=== PATIENT | female | born 1970 ===

== ENCOUNTER 2018-05-29 11:46 | Emergency (ER) | payer OTHER, SELFPAY ==
[2018-05-29 12:01] VITALS: BP 134/72; PULSE 66; RESP 18; TEMP 97.8; O2SAT 98; BMI 22.3
--- NOTE | 2018-05-29 12:17 | ED PDOC ---
Arrival/HPI - General Chief Complaint: ENT Problem Time Seen by Provider: 05/29/18 12:03 Historian: Patient - History of Present Illness Narrative History of Present Illness (Text): 05/29/18 12:14 47 y/o female, nkda, c/o left ear pain and decrease hearing for the past several days. Aching pain, admits decrease hearing, no headache or neck pain, no head or neck injury, no numbness or tingling, no other medical or psychological complaints. Past Medical History - Provider Review Nursing Documentation Reviewed: Yes - Infectious Disease Hx of Infectious Diseases: None - Psychiatric Hx Substance Use: No Family/Social History - Physician Review Nursing Documentation Reviewed: Yes Family/Social History: Unknown Family HX Smoking Status: Never Smoked Hx Alcohol Use: Yes Frequency of alcohol use: Socially Hx Substance Use: No Allergies/Home Meds Allergies/Adverse Reactions: Allergies No Known Allergies Allergy (Verified 05/29/18 12:01) Home Medications: Home Meds Medication Instructions Recorded Confirmed No Known Home Med 05/29/18 05/29/18 Review of Systems - Review of Systems Constitutional: absent: Fatigue, Fevers ENT: Other (lt. ear pain and decrease hearing). absent: Hearing Changes Respiratory: absent: SOB, Cough Cardiovascular: absent: Chest Pain Gastrointestinal: absent: Abdominal Pain, Diarrhea, Nausea, Vomiting Skin: absent: Rash, Pruritis Neurological: absent: Headache, Dizziness Psychiatric: absent: Anxiety, Depression, Suicidal Ideation Physical Exam Vital Signs Reviewed: Yes Vital Signs Temp Pulse Resp BP Pulse Ox 05/29/18 12:00 97.8 F 66 18 134/72 98 Temperature: Afebrile Blood Pressure: Normal Pulse: Regular Respiratory Rate: Normal Appearance: Positive for: Well-Appearing, Non-Toxic, Comfortable Pain Distress: Mild Mental Status: Positive for: Alert and Oriented X 3 - Systems Exam Head: Present: Atraumatic, Normocephalic Pupils: Present: PERRL Extroacular Muscles: Present: EOMI Conjunctiva: Present: Normal Ears: Present: Other (Ears: unable to visualized lt. TM as the ear is filled with ceruman, rt. TM bernard color and intact, bilateral auditory canals non- erythematous, no mastoid tenderness, hearing grossly decreased in left ear) Mouth: Present: Moist Mucous Membranes Neck: Present: Normal Range of Motion Respiratory/Chest: Present: Clear to Auscultation, Good Air Exchange. No: Respiratory Distress, Accessory Muscle Use Cardiovascular: Present: Regular Rate and Rhythm, Normal S1, S2. No: Murmurs Abdomen: No: Tenderness, Distention, Peritoneal Signs Back: Present: Normal Inspection Upper Extremity: Present: Normal Inspection. No: Cyanosis, Edema Lower Extremity: Present: Normal Inspection. No: Edema Neurological: Present: GCS=15, CN II-XII Intact, Speech Normal Skin: Present: Warm, Dry, Normal Color. No: Rashes Psychiatric: Present: Alert, Oriented x 3, Normal Insight, Normal Concentration Medical Decision Making ED Course and Treatment: 05/29/18 12:17 -Lt. ear irrigation with normal saline, significant amount of ear wax removed from the left ear, hearing increased on left ear and resolved pain on the left ear as well. 05/29/18 12:24 -Pt is feeling completely well with no pain or decrease hearing, ears examined again and show the following: Ears: bilateral TMs bernard color and intact, bilateral auditory canals with no erythematous/abrasion/laceration/impaction, hearing grossly equal and same, no mastoid tenderness. -Pt. is on her period now. -Discharge home with education on follow up with your own pmd and ENT within 2 days, return to the ER for any new or worsening signs or symptoms. 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 Disposition/Present on Arrival - Present on Arrival Any Indicators Present on Arrival: No History of DVT/PE: No History of Uncontrolled Diabetes: No Urinary Catheter: No History of Decub. Ulcer: No History Surgical Site Infection Following: None - Disposition Have Diagnosis and Disposition been Completed?: Yes Diagnosis: Cerumen impaction Disposition: HOME/ ROUTINE Disposition Time: 12:27 Patient Plan: Discharge Condition: IMPROVED Discharge Instructions (ExitCare): Ear Wax Impaction Additional Instructions: -Discharge home with education on follow up with your own pmd and ENT within 2 days, return to the ER for any new or worsening signs or symptoms. Referrals: Nathanael Thomas DO [Staff Provider] - Follow up with primary Forms: [facility] (Lao), WORK NOTE
== END 2018-05-29 12:42 | disposition home or self-care (01) ==
LOC: ED 11:46
DX: H61.22 Impacted cerumen, left ear (principal)